=== PATIENT | female | born 2005 | race Hispanic/Latino ===

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

== ENCOUNTER 2025-04-01 16:45 | Emergency (ER) | payer OTHER, SELFPAY ==
[2025-04-01] MEDS ORDERED: Dexamethasone 10 MG/ML VIAL ONE (17:33)
== END 2025-04-01 17:47 | disposition home or self-care (01) ==
LOC: CSHERS 16:45
DX: J02.9 Acute pharyngitis, unspecified (principal)
CPT/HCPCS: 87081; 87428; 87430; 99283; J1100